=== PATIENT | female | born 1985 | race Caucasian/White ===

== ENCOUNTER 2020-07-14 00:06 | Inpatient (IN) | payer OTHER ==
[~2020-07-14] VITALS: Ht 180.3 cm; Wt 131.0 kg
[2020-07-14] VITALS (8 sets, daily range): BP systolic 104–153; BP diastolic 61–94
[2020-07-14] MEDS ORDERED: LR 1,000 ML IV SCH ×3 (00:50→08:05)
[2020-07-14] MEDS ORDERED: SUBO8MIS SL (01:20)
[2020-07-14] MEDS ORDERED: PRENTAB9 PO (01:20)
--- NOTE | 2020-07-14 02:46 | REPVR ---
PROCEDURE INFORMATION: Exam: US , Limited Exam date and time: 07/14/2020 1:48 AM Age: 34 years old Clinical indication: Lmp or gestational age (in weeks): 38; Other: No prenantal care; ; Additional info: Twins labor check TECHNIQUE: Imaging protocol: Real-time ultrasound of the maternal uterus with image documentation. Exam focused on the clinical indication. COMPARISON: No relevant prior studies available. FINDINGS: Gestation: Twin fetuses Fetus B demonstrates a heartbeat of 143 bpm with normal kidneys, stomach, cord and bladder. Fetus A demonstrates a heartbeat of 132 bpm and normal bladder and stomach. Adequate amniotic fluid. MVP is 3.9 cm. Cord S/D is 2.3. The BPD measures 8.9 cm suggesting an age of 35 weeks 6 days. The head circumference measures 34.0 cm suggesting an age of 39 weeks 1 day. The abdominal circumference measures 34.6 cm suggesting an age of 38 weeks 3 days. The femur length measures 7.3 cm suggesting an age of 37 weeks 2 days. The composite gestational age by ultrasound is 37 weeks 4 days. The estimated weight is 3349 grams and is 71st percentile. Fetus A is cephalic with posterior and right lateral placenta and fetus B is transverse with head on the maternal right with anterior placenta. There is adequate amniotic fluid. MVP is 4.5 cm. Cord S/D is 2.5. The BPD measures 9.4 cm suggesting an age of 38 weeks 1 day. The head circumference measures 32.5 cm suggesting an age of 36 weeks 5 days. The abdominal circumference measures 32.2 cm suggesting an age of 36 weeks 3 days. The femur length measures 7.0 cm suggesting an age of 36 weeks 0 days. The composite gestational age by ultrasound is 36 weeks 4 days. The estimated weight is 2968 grams and is 44th percentile. IMPRESSION: Twin gestation as described with ages of 37 weeks 4 days and 36 weeks 4 days Electronically signed by: Min Barrow On 07/14/2020 02:45:18 AM
[2020-07-14] MEDS ORDERED: LACTATED RINGER'S 1000 ML IV STA (03:12)
[2020-07-14] MEDS ORDERED: METHYLERGONOVINE MALEATE 0.2 MG/ML VIAL (J2210) IM PRN (03:15)
[2020-07-14] MEDS ORDERED: GABA-283 PO (03:15)
[2020-07-14] MEDS ORDERED: CLINDAMYCIN 900 MG in IV 1 EA IV ONE (03:15)
[2020-07-14] MEDS ORDERED: WELLTAB38 PO (03:15)
[2020-07-14] MEDS ORDERED: OXYTOCIN DRIP 30 UNITS in IV 1 EA IV PRN (03:15)
[2020-07-14] MEDS ORDERED: TRANEXAMIC ACID INJection 1,000 MG in NS 100 ML IV PRN (03:15)
[2020-07-14] MEDS ORDERED: CARBOPROST TROMETHAMINE 250 MCG/ML AMP IM PRN (03:15)
[2020-07-14] MEDS ORDERED: GENTAMICIN 400 MG in D5W 100 ML IV ONE (03:30)
--- NOTE | 2020-07-14 03:36 | HPEPDOC ---
Obstetrical History & Physical General Date of Admission July 14, 2020 at 00:06 Primary Care Physician: DERREK MCKINNEY CNM History of Present Illness Gi is a 34-year-old female who is a at 38.1 weeks gestation with an ROMEL of 07/27/20 based off of a 26 week ultrasound. She initiated care in [facility] practice. Her has been complicated. She had been using methamphetamines regularly, was buying Subutex off of the street (she is in a program currently and is using 8 mg TID and tested negative for UDT), she is Hepatitis C positive,she is a smoker, and multiple drug use and abuse including: Clonidine, Lexapro, Klonipin, Ritalin, Wellbutrin and Lasix. She was transferred to us because of + amniosure on 07/13/20 after having a fall. There was a negative fern and negative nitrazine. She reports active movement. She denies leaking of fluid, contractions or vaginal bleeding. Chief Complaint: Other (di/di twin with +Amniosure) Information Provided By: Patient Age: 34 : 4 Term: 1 Pre-term: 0 Abortions: 2 Livin Care Care: Limited Care Dating Final EDC: July 27, 2020 Final EDC by: 2nd trimester (US) EGA at Admission: 38.1 Antepartum Course Diagnos(e)s methamphetamine use-history of drug abuse Hepatitis C Di/di twin Tobacco use late to care subutex use Height (inches): 71 Admission Weight (lbs.): 288 Past Medical History Past Obstetrical History : Past Obstetrical History: Primgravida Type of Delivery: Spontaneous Vaginal Del. (2005) Sex of : Male (8 lbs 12 oz) Complications: No RELATIONSHIP COUNSELOR History: Spontaneous , Theraputic , History of STD Past Medical History Medical History Hepatitis C Surgical History: Gallbladder Family History Significant Family History: Cancer, Diabetes, Heart disease Social History Marital Status: Family situation: Spouse/partner home * Smoker: current smoker Alcohol: Denies Drugs: other (history of drug use ) Allergies Coded Allergies: amoxicillin (Verified Allergy, Severe, 07/14/20) anaphylactic shock Medications Scheduled Buprenorphine HCl/Naloxone HCl (Suboxone 8 mg-2 mg Sl Film) 1 Each Film, 1 MIS SL TID Bupropion HCl (Wellbutrin Xl) 150 Mg Tab.er.24h, 150 MG PO DAILY Gabapentin (Gabapentin) 400 Mg Capsule, 300 MG PO TID No.137/Iron/Folic Acd ( Vitamin Tablet) 1 Each Tablet, 1 TAB PO DAILY Physical Examination Physical Examination GENERAL: Alert and oriented times three. BREAST: . ABDOMEN: Gravid and non-tender to touch. FETUS: Twin A cephalic, Twin B breech. LUNGS: Clear to auscultation (CTA). EXTREMITIES: 2-3+pitting edema. No clonus. Deep tendon reflexes (DTRs) + 2 SVE by school physical therapist at [place]: 3 cm 70% effaced. Vital Signs/I&O Vital Signs Date Time Temp Pulse Resp B/P (MAP) Pulse Ox O2 Delivery O2 Flow Rate FiO2 07/14/20 00:23 98.3 76 18 132/89 (103) Laboratory Data 24H LABS Laboratory Tests 2 07/14/20 01:53: Pertinent Laboratoy Data Blood Type: O+ RBC Antibody Screen: Negative HIV: Negative Hepatitis B: Negative Hepatitis C: Negative Rapid Plasma Reagin: Nonreactive Rubella: Immune Chlamydia/Gonorrhea: Negative Group B Streptococcus: Negative Assessment Heart Rate (FHR): 120 Variability: Moderate (Twin B 125) Accelerations: Positive Decelerations: None Tocometer Contractions: Yes Frequency: other (occasional) Multi-drug resistant Organism: No history of MDRO Assessment/Plan Assessment di/di twin at 38.1 weeks gestation smoker +Amniosure Category I FHR tracing Plan Admit to L&D OOB ad beryl. Diet: NPO. Labs and intravenous (IV) per unit protocol. Counseled on primary section after consulting Dr. New. Anesthesia notified. Lactated Ringers (LR): Bolus 1000 mL, then at 125 mL/hr. Consents obtained. Will proceed with section at 0600. DERREK MCKINNEY CNM July 14, 2020 03:35
[2020-07-14 04:38] LABS: HEMATOCRIT 33.5 % (36.0-47.0); HEMOGLOBIN 10.5 g/dl (12.0-15.5); MEAN CORPUSCULAR HEMOGLOBIN 26.6 pg (27.0-33.0); MEAN CORPUSCULAR HGB CONC 31.3 g/dl (32.0-36.5); PLATELET COUNT, AUTOMATED 211 10^3/uL (150-450); RED BLOOD COUNT 3.94 10^6/uL (4.00-5.40); WHITE BLOOD COUNT 8.2 10^3/uL (4.0-10.0)
[2020-07-14] MEDS ORDERED: BICITRA 30ML SOLN UDC PO ONE (06:00)
[2020-07-14] MEDS: BUPRENORPHINE HCL 8MG SUBINGUAL TABLET SL SCH ×3 (06:18→21:06)
[2020-07-14] MEDS ORDERED: GABA-282 PO (06:18)
[2020-07-14] MEDS ORDERED: BUPR8SUB SL (06:18)
[2020-07-14] MEDS ORDERED: diphenhydrAMINE 50MG/ML VIAL (J1200) IV PRN (06:34)
[2020-07-14] MEDS ORDERED: METOCLOPRAMIDE INJ 10MG/2ML VIAL (J2765 PER 1) IV PRN ×2 (06:34→08:05)
[2020-07-14] MEDS ORDERED: NALOXONE INJ 0.4MG/1ML VIAL (J2310 PER 1MG) IV PRN ×2 (06:34)
[2020-07-14] MEDS ORDERED: ONDANSETRON 4MG/2ML VIAL IV PRN ×3 (06:34→08:05)
[2020-07-14] MEDS ORDERED: NALBUPHINE HCL 10 MG/ML AMP (J2300) IV PRN (06:34)
[2020-07-14] MEDS ORDERED: dexameTHASONE 4 MG/ML 1ML VIAL (J1100 PER 1MG) As Ordered ONE (06:48)
[2020-07-14] MEDS ORDERED: ACETAMINOPHEN 1000MG 100ML IV BTL (OFIRMEV) (J0131 PER 10MG) As Ordered ONE (06:48)
[2020-07-14] MEDS ORDERED: KETOROLAC 60MG 2ML VIAL As Ordered ONE (06:48)
[2020-07-14] MEDS ORDERED: PHENYLephrine 500MCG 5ML (100MCG/ML) SYRINGE As Ordered ONE (06:48)
[2020-07-14] MEDS ORDERED: MORPHINE PRES-FREE INJ 10 MG/10 ML VIAL (J2274) As Ordered ONE (06:48)
[2020-07-14] MEDS ORDERED: OXYTOCIN 30 UNITS IN 0.9% NaCl 500ML IV BAG (J2590) As Ordered ONE ×2 (06:48→07:55)
[2020-07-14] MEDS ORDERED: ONDANSETRON 4MG/2ML VIAL As Ordered ONE (06:48)
[2020-07-14] MEDS ORDERED: ePHEDrine SULFATE 25 MG/5 ML(5MG/ML) SYRINGE As Ordered ONE (07:01)
[2020-07-14] MEDS ORDERED: ACETAMINOPHEN 500 MG TAB PO PRN (07:40)
[2020-07-14] MEDS ORDERED: RHOGAM 300 MCG (1500 IU) INJ (J2790) IM SCH (07:40)
[2020-07-14] MEDS ORDERED: SIMETHICONE 80MG CHEW TAB PO PRN (07:40)
[2020-07-14] MEDS ORDERED: MEASLES,MUMPS,RUBELLA VACCINE INJ (MMR-II) (90707) SC SCH (07:40)
[2020-07-14] MEDS ORDERED: OXYTOCIN DRIP 30 UNITS in IV 1 EA IV SCH (07:40)
[2020-07-14] MEDS ORDERED: PERCOCET 5MG/325MG TAB PO PRN (07:40)
[2020-07-14] MEDS ORDERED: HYDROMORPHONE HCL 0.5 MG/ 0.5 ML SYRINGE (J1170 PER 1) IV PRN (08:05)
[2020-07-14] MEDS ORDERED: fentaNYL 100 MCG/2 ML INJECTION (J3010) As Ordered ONE (09:09)
[2020-07-14] MEDS: fentaNYL 100 MCG/2 ML INJECTION (J3010) IV PRN ×4 (09:17→09:34)
[2020-07-14] MEDS: DOCUSATE SODIUM 100MG CAPSULE PO SCH ×2 (12:59→21:05)
[2020-07-14] MEDS: PRENATAL VITAMINS CHEWABLE TABLET PO SCH (12:59)
[2020-07-14] MEDS: KETOROLAC 30 MG/ML 1ML VIAL IV SCH ×2 (12:59→19:27)
[2020-07-14] MEDS: buPROPion **XL** TABLET 150MG (WELLBUTRIN XL) PO SCH (13:02)
[2020-07-14] MEDS: LR 1,000 ML IV SCH ×2 (13:02→21:06)
--- NOTE | 2020-07-14 13:21 | ROOPDOC ---
[facility] Report Of Operation Report of Operation DATE OF PROCEDURE: 07/14/2020 PREPROCEDURE DIAGNOSES:, 38+ weeks gestation. Dichorionic diamniotic twin gestation. malpresentation of twin B. Spontaneous rupture of membranes. POSTPROCEDURE DIAGNOSES: Same PROCEDURE:. Primary low transverse section SURGEON: Lukas New DO FACOG FUND DEVELOPMENT MANAGER: Apurva Melvin CNM (Essential role in retraction, extraction, and closure of all tissue layers) ANESTHESIA: Spinal ESTIMATED BLOOD LOSS: 750 mL. IV FLUIDS: 1000 mL LR URINE OUTPUT: 50 mL COMPLICATIONS: None. PREOPERATIVE ANTIBIOTICS: Clindamycin, gentamicin. COMPLICATIONS: none DATA: Twin A Apgars 8 and 8. Birthweight 2840 g, 6 lbs 4 oz. male . Twin B , Apgars 8 and 8, weight 7 lbs. 2 oz., 3230 g male SPECIMENS: none PRIMARY INDICATION FOR : malpresentation of twin B DESCRIPTION OF PROCEDURE: The patient was counseled on the risks, benefits, indications and alternatives of the procedure. Informed consent was obtained. She was taken to the operating room with IV running and placed on the operating table in the dorsal supine position with a leftward tilt. Regional anesthesia was found to be adequate. Sequential compression devices were placed on the lower extremities. A Salmon catheter was placed under sterile conditions. She was prepared and draped in no rmal sterile fashion. A time out was performed per protocol. Regional anesthesia was again found to be adequate. A Pfannenstiel skin incision was made with the 10 blade. The 10 blade was used to dissect down to the level of the rectus sheath fascia. The rectus sheath pressure was incised midline and this was extended bilaterally with Curtis scissors , and manual stretch. The rectus muscle bellies were dissected off the rectus sheath fascia superiorly and inferiorly using both sharp and blunt dissection. The midline was identified. The peritoneum was identified and entered digitally. The peritoneal opening was extended with manual stretch. The Mobius retractor was placed. The vesicouterine peritoneum was dissected with Metzenbaum scissors to create the bladder flap. A low transverse uterine incision was made with the 10 blade. This was extended with manual stretch. The amniotic sac of twin A was punctured, and clear fluid was noted. The baby delivered through the hysterotomy without difficulty. The cord was doubly clamped and cut, and the baby was handed off to awaiting care. data shown above.. The amniotic sac of twin B was punctured, and clear fluid was noted. The baby delivered through the hysterotomy without difficulty using typical breech maneuvers. The cord was doubly clamped and cut, and the baby was handed off to awaiting care. data shown above. The placentas were removed manually. The intrauterine cavity was cleared of all clot and debris. The hysterotomy was closed with 0 Vicryl in running locked fashion. This was reinforced with a second imbricating layer using 0 Monocryl in running fashion. Excellent hemostasis of the hysterotomy was noted. The pelvis was irrigated and the fluid suctioned. The Mobius retractor was removed. The peritoneum was closed with 3-0 Vicryl running fashion. The rectus muscle bellies were reapproximated with interrupted stitches using 3-0 Vicryl. The rectus muscles bellies were hemostatic. The rectus sheath fascia was closed with 0 Vicryl running fashion. The subcutaneous layer was irrigated and the fluid suctioned. Small bleeding vessels were cauterized with Bovie. Excellent hemostasis was noted. The subcutaneous layer was reapproximated with 3-0 Vicryl running fashion. Skin was closed with 3-0 Monocryl in subcuticular fashion. An Optifoam bandage was placed over the closed incision. Sponge, needle and i nstrument counts were correct per protocol throughout the procedure. The patient tolerated the entire procedure very well. She was transferred to the PACU in stable condition. DO HENRY Johnson JONATHAN R. DO July 14, 2020 13:21
[2020-07-14] MEDS: GABAPENTIN 300 MG CAP PO SCH ×2 (17:28→21:05)
[2020-07-14] MEDS: PERCOCET 5MG/325MG TAB PO PRN (17:33)
[2020-07-15] MEDS: KETOROLAC 30 MG/ML 1ML VIAL IV SCH (01:18)
[2020-07-15 02:00] VITALS: BP 135/83
[2020-07-15] MEDS: PERCOCET 5MG/325MG TAB PO PRN ×3 (04:59→21:13)
[2020-07-15] MEDS: BUPRENORPHINE HCL 8MG SUBINGUAL TABLET SL SCH ×3 (05:57→21:13)
[2020-07-15 06:00] VITALS: BP 131/74
[2020-07-15 07:10] LABS: HEMATOCRIT 27.6 % (36.0-47.0); HEMOGLOBIN 8.7 g/dl (12.0-15.5); MEAN CORPUSCULAR HEMOGLOBIN 26.9 pg (27.0-33.0); MEAN CORPUSCULAR HGB CONC 31.5 g/dl (32.0-36.5); MEAN CORPUSCULAR VOLUME 85.4 fl (80.0-96.0); PLATELET COUNT, AUTOMATED 209 10^3/uL (150-450); RED BLOOD COUNT 3.23 10^6/uL (4.00-5.40); WHITE BLOOD COUNT 8.6 10^3/uL (4.0-10.0)
[2020-07-15] MEDS: PRENATAL VITAMINS CHEWABLE TABLET PO SCH (09:21)
[2020-07-15] MEDS: DOCUSATE SODIUM 100MG CAPSULE PO SCH ×2 (09:21→20:48)
[2020-07-15] MEDS: GABAPENTIN 300 MG CAP PO SCH ×3 (09:22→20:48)
[2020-07-15] MEDS: buPROPion **XL** TABLET 150MG (WELLBUTRIN XL) PO SCH (09:22)
[2020-07-15] MEDS: IBUPROFEN 800 MG TAB PO SCH ×2 (09:22→17:58)
[2020-07-15 10:00] VITALS: BP 131/78
[2020-07-15 14:00] VITALS: BP 130/73
[2020-07-15 18:00] VITALS: BP 141/76
[2020-07-15 22:00] VITALS: BP 132/72
[2020-07-16] MEDS: IBUPROFEN 800 MG TAB PO SCH ×3 (01:08→16:57)
[2020-07-16 02:00] VITALS: BP 133/79
[2020-07-16] MEDS: BUPRENORPHINE HCL 8MG SUBINGUAL TABLET SL SCH ×3 (05:25→21:24)
[2020-07-16] MEDS: PERCOCET 5MG/325MG TAB PO PRN ×4 (05:26→23:54)
[2020-07-16 06:00] VITALS: BP 129/79
[2020-07-16] MEDS: PRENATAL VITAMINS CHEWABLE TABLET PO SCH (09:30)
[2020-07-16] MEDS: buPROPion **XL** TABLET 150MG (WELLBUTRIN XL) PO SCH (09:31)
[2020-07-16] MEDS: GABAPENTIN 300 MG CAP PO SCH ×3 (09:31→21:24)
[2020-07-16] MEDS: DOCUSATE SODIUM 100MG CAPSULE PO SCH ×2 (09:31→21:24)
[2020-07-16 10:06] VITALS: BP 130/74
[2020-07-16 18:00] VITALS: BP 120/75
[2020-07-17] MEDS: IBUPROFEN 800 MG TAB PO SCH ×3 (00:50→16:28)
[2020-07-17] MEDS: BUPRENORPHINE HCL 8MG SUBINGUAL TABLET SL SCH ×2 (05:57→14:14)
[2020-07-17 06:00] VITALS: BP 120/74
[2020-07-17] MEDS: PERCOCET 5MG/325MG TAB PO PRN ×3 (07:50→18:24)
[2020-07-17] MEDS ORDERED: PERCOCET PO (08:11)
[2020-07-17] MEDS ORDERED: IBUP80TA PO (08:11)
--- NOTE | 2020-07-17 08:13 | DS.PDOC ---
Discharge Summary General Date of Admission July 14, 2020 at 00:06 Attending Physician: CLAUDIA ANSARI DO Discharge Summary PROCEDURES PERFORMED DURING STAY: [None]. ADMITTING DIAGNOSES: 1. . DISCHARGE DIAGNOSES: 1. . COMPLICATIONS/CHIEF COMPLAINT: LABOR. HISTORY OF PRESENT ILLNESS: Gi is a 34-year-old female who is a at 38.1 weeks gestation with an ROMEL of 07/27/20 based off of a 26 week ultrasound. She initiated care in [facility]. Her has been complicated. She had been using methamphetamines regularly, was buying Subutex off of the street (she is in a program currently and is using 8 mg TID and tested negative for UDT), she is Hepatitis C positive,she is a smoker, and multiple drug use and abuse including: Clonidine, Lexapro, Klonipin, Ritalin, Wellbutrin and Lasix. She was transferred to us because of + amniosure on 07/13/20 after having a fall. There was a negative fern and negative nitrazine. She reports active movement. She denies leaking of fluid, contractions or vaginal bleeding. DISCHARGE MEDICATIONS: Please see below. ALLERGIES: Please see below. PHYSICAL EXAMINATION ON DISCHARGE: VITAL SIGNS: Please see below. GENERAL: HEENT: NECK: CARDIOVASCULAR EXAMINATION: RESPIRATORY EXAMINATION: ABDOMINAL EXAMINATION: EXTREMITIES: SKIN: NEUROLOGICAL EXAMINATION: PSYCHIATRIC EXAMINATION: LABORATORY DATA: Please see below. IMAGING: PROGNOSIS: ACTIVITY: [As tolerated]. DIET: DISCHARGE PLAN: DISPOSITION: . DISCHARGE INSTRUCTIONS: 1. . ITEMS TO FOLLOWUP ON ON OUTPATIENT: 1. . DISCHARGE CONDITION: [Stable]. TIME SPENT ON DISCHARGE: Greater than minutes. Vital Signs/I&Os Vital Signs Date Time Temp Pulse Resp B/P (MAP) Pulse Ox O2 Delivery O2 Flow Rate FiO2 07/17/20 07:50 20 07/17/20 06:00 98.5 99 120/74 (89) 97 Room Air Discharge Medications Scheduled Buprenorphine HCl (Buprenorphine HCl) 8 Mg Tab.subl, 8 MG SL TID, (Reported) Bupropion HCl (Wellbutrin Xl) 150 Mg Tab.er.24h, 150 MG PO DAILY, (Reported) Gabapentin (Gabapentin) 300 Mg Capsule, 300 MG PO TID, (Reported) Ibuprofen (Ibuprofen) 800 Mg Tablet, 800 MG PO Q8H No.137/Iron/Folic Acd ( Vitamin Tablet) 1 Each Tablet, 1 TAB PO DAILY, (Reported) Scheduled PRN Oxycodone/Acetaminophen (Oxycodone-Acetaminophen 5-325) 1 Each Tablet, 1-2 TAB PO Q4HP PRN for MODERATE/SEVERE PAIN (PS 5-10) Allergies Coded Allergies: amoxicillin (Verified Allergy, Severe, 07/14/20) anaphylactic shock SRINIVAS MORATAYA MD. July 17, 2020 08:13
[2020-07-17] MEDS: DOCUSATE SODIUM 100MG CAPSULE PO SCH (08:55)
[2020-07-17] MEDS: PRENATAL VITAMINS CHEWABLE TABLET PO SCH (08:55)
[2020-07-17] MEDS: GABAPENTIN 300 MG CAP PO SCH ×2 (10:42→16:27)
[2020-07-17] MEDS: buPROPion **XL** TABLET 150MG (WELLBUTRIN XL) PO SCH (10:42)
== END 2020-07-17 18:30 | disposition home or self-care (01) | DRG 540 ==
LOC: M LDI 00:06 → M OBS 09:47
PROVIDERS: ADMIT Obstetrics & Gynecology; ATTEND Obstetrics & Gynecology
PROC: 10D00Z1 Extraction of Products of Conception, Low, Open Approach (ICD-10-PCS; principal; 2020-07-14 07:20)
DX: O30.043 Twin pregnancy, dichorionic/diamniotic, third trimester (principal); Z3A.38 38 weeks gestation of pregnancy; Z37.2 Twins, both liveborn; O99.334 Smoking (tobacco) complicating childbirth; F17.210 Nicotine dependence, cigarettes, uncomplicated; O41.8X30 Other specified disorders of amniotic fluid and membranes, third trimester, not applicable or unspecified; O32.1XX2 Maternal care for breech presentation, fetus 2